=== PATIENT | female | born 1980 | race Caucasian/White ===

== ENCOUNTER 2021-11-23 16:32 | Outpatient (CLI) | payer BC, SELFPAY ==
[2021-11-23 19:15] LABS: SARS-CoV-2 RNA PCR Negative (Negative)
== END 2021-11-23 16:33 | disposition home or self-care (01) ==
LOC: CHSLAB 16:38
PROVIDERS: PCP Internal Medicine
DX: R05.9 Cough, unspecified (principal); Z20.822 Contact with and (suspected) exposure to COVID-19
CPT/HCPCS: C9803; U0003; U0005

== ENCOUNTER 2022-01-18 23:25 | Emergency (ER) | payer BC, SELFPAY ==
--- NOTE | ~2022-01-18 | XR_ITS ---
XR chest 1V portable DATE: 01/19/2022 01:25 INDICATION: Palpitations TECHNIQUE: Portable upright AP chest on 01/19/2022 at 0121 hours COMPARISON: None FINDINGS: Normal heart size. No hilar or mediastinal enlargement. No pulmonary infiltrate or consolid ation, pleural effusion or pulmonary vascular congestion or pneumothorax. IMPRESSION: No active cardiopulmonary disease Reviewed, dictated and finalized at location [facility]. ED [employer]
--- NOTE | ~2022-01-18 | CT_ITS ---
EXAMINATION: CT brain wo con DATE: 01/19/2022 01:43 INDICATION: Dizziness TECHNIQUE: Computed tomography (CT) of the head was performed without intravenous contrast. The mA wa s adjusted according to patient size. Iterative reconstruction technique was employed. Exam dose: 60 5.33 mGy-cm total exam DLP. COMPARISON: None FINDINGS: No intracranial mass lesion or hemorrhage or cerebrovascular accident, midline shift or mas s effect. Normal ventricular size. There is some volume loss in the frontal lobes. No subdural or epidural hematoma. No orbital mass lesion. No skull fracture or bone destruction. Included paranasal sinuses and the mastoid air cells are mery lly developed and aerated. IMPRESSION: No acute intracranial finding Reviewed, dictated and finalized at [facility]. Reviewed, dictated and finalized at location [facility]. PACKER
[2022-01-18 23:33] VITALS: BP 129/76; PULSE 107; RESP 18; TEMP 36.8; O2SAT 95
[2022-01-18 23:35] LABS: Glucose Point of Care 370 mg/dl (65-105)
--- NOTE | 2022-01-19 00:07 | ECG_ITS ---
Measurements Intervals [place] Rate: 90 P: 48 MS: 138 QRS: 2 QRSD: 95 T: 47 QT: 368 QTc: 452 Interpretive Statements SINUS RHYTHM INCOMPLETE RIGHT BUNDLE BRANCH BLOCK [90+ ms QRS DURATION, TERMINAL R IN V1/V2, 40+ ms S IN I/aVL/V4/V5/V6] BORDERLINE EKG NO PREVIOUS ECG AVAILABLE FOR COMPARISON Electronically Signed On 01-19-2022 8:59:01 DOUBLE NEEDLE STITCHER by Moustapha La M.D.
[2022-01-19] MEDS: THIAMINE HCL INJ 100 MG, FOLIC ACID 1 MG, MULTIVITAMINS-12 INJ 10 ML, MAGNESIUM SULFATE... 1000 MG IV CONT (00:36)
[2022-01-19 00:40] LABS: Basophils Absolute Auto 0.07 K/mm3 (0.00-0.10); Basophils Percent Auto 0.8 % (0.0-1.0); Eosinophils Absolute Auto 0.39 K/mm3 (0.02-0.50); Eosinophils Percent Auto 4.2 % (1.0-6.0); Hematocrit 42.7 % (35.0-49.0); Hemoglobin 15.3 g/dL (12.0-15.0); Immature Granulocyte Absolute 0.07 K/mm3 (0.00-0.00); Immature Granulocyte Percent A 0.8 % (0.0-0.0); Lymphocytes Absolute Auto 2.96 K/mm3 (1.10-4.50); Lymphocytes Percent Auto 31.8 % (18.0-42.0); Mean Corpuscular HGB Conc 35.8 g/dL (32.0-36.0); Mean Corpuscular Hemoglobin 32.9 pg (27.0-31.0); Mean Corpuscular Volume 91.8 fL (78.0-102.0); Mean Platelet Volume 10.5 fl (9.2-11.8); Monocytes Absolute Auto 0.38 K/mm3 (0.10-0.90); Monocytes Percent Auto 4.1 % (2.0-11.0); Neutrophils Absolute Auto 5.4 K/mm3 (1.7-7.2); Neutrophils Percent Auto 58.3 % (50.0-70.0); Platelet Count Result 195 K/mm3 (150-420); Red Blood Count 4.65 M/mm3 (4.20-5.40); Red Cell Distribution Width 11.9 % (11.6-14.4); White Blood Count 9.3 K/mm3 (4.8-10.8)
[2022-01-19 00:50] LABS: Amphetamine Screen Urine Negative (Negative); Barbiturate Screen Urine Negative (Negative); Benzodiazepines Screen Urine Negative (Negative); Cannabinoid Screen Urine Negative (Negative); Cocaine Screen Urine Positive (Negative); Methadone Screen Urine Negative (Negative); Opiate Screen Urine Negative (Negative); Phencyclidine Screen Urine Negative (Negative)
[2022-01-19 00:56] LABS: Alanine Aminotransferase 159 U/L (14-59); Alkaline Phosphatase 196 U/L (46-116); Anion Gap 15 mmol/L (8-16); Aspartate Amino Transferase 74 U/L (15-37); Bilirubin,Total 0.4 mg/dL (0.00-1.00); Blood Urea Nitrogen 6 mg/dL (7-18); Calcium 9.6 mg/dL (8.5-10.1); Carbon Dioxide 24 mmol/L (21-32); Chloride 100 mmol/L (98-108); Estimated CRCL calculation 72 ml/min; Estimated Glomerular Filt Rate > 60; Ethanol 199 mg/dL (0-6); Osmolality Calculated 303 mOsm/kg (285-295); Potassium 3.8 mmol/L (3.5-5.1); Sodium 139 mmol/L (136-145); Total Protein 7.6 g/dL (6.4-8.2); Troponin I 10.7 ng/L (0.00-60.4)
[2022-01-19 00:58] LABS: Glucose 419 mg/dL (70-99)
[2022-01-19] MEDS: INSULIN HUMAN REGULAR (*BKC) 100 UNITS/ML 12 UNITS IV PUSH (02:08)
[2022-01-19 02:22] LABS: Glucose Point of Care 292 mg/dl (65-105)
[2022-01-19 03:33] LABS: Reflex Lactic Acid Yes or No Add Lactic
[2022-01-19] MEDS: SODIUM CHLORIDE 0.9% IV 1,000 ML 999 ML IV CONT (03:46)
[2022-01-19 04:06] LABS: Lactic Acid 2.7 mmol/L (0.4-2.0)
--- NOTE | 2022-01-19 04:12 | ED.ANXIETY ---
HPI - Anxiety General Chief Complaint: Anxiety Stated Complaint: anxiety Time Seen by Provider: 01/18/22 23:27 Source: patient and RN notes reviewed Limitations: no limitations History of Present Illness MD complaint: anxiety and heart racing Onset (ago): hour(s) (6) Symptoms: palpitations and muscle cramps Severity: mild Quality: constant History of similar episodes: Yes Provoking factors: none known Relieving factors: nothing Exacerbating factors: nothing Associated symptoms: palpitations Related Data Home Medications Medication Instructions Recorded Confirmed alprazolam 0.5 mg PO DAILY 01/18/22 01/18/22 dulaglutide [Trulicity] 0.75 mg SUBCUT DAILY 01/18/22 01/18/22 fluticasone propionate 50 mcg INTRANASAL DAILY 01/18/22 01/18/22 hydrochlorothiazide 12.5 mg PO DAILY 01/18/22 01/18/22 medroxyprogesterone 150 mg IM USEASDIRECTD 01/18/22 01/18/22 metformin 500 mg PO DAILY 01/18/22 01/18/22 metoprolol succinate 25 mg PO DAILY 01/18/22 01/18/22 rosuvastatin 40 mg PO DAILY 01/18/22 01/18/22 sertraline 100 mg PO DAILY 01/18/22 01/18/22 Allergies Allergy/AdvReac Type Severity Reaction Status Date / Time No Known Allergies Allergy Mild Verified 01/18/22 23:37 Review of Systems Review of Systems: All systems reviewed & are unremarkable except as noted in HPI and below PMFSH Past Medical History Medical History (Updated 02/26/22 @ 10:16 by Belia Ervin MD) Alcohol abuse Alcohol intoxication Substance abuse Exam Const: General: no acute distress Nutritional Appearance: well nourished Orientation/consciousness: patient oriented x3 Limitations: no limitations HENMT: Ears: external ears normal, TM's normal bilaterally and Abnormal EAC present General nose exam: Normal external nose present and Normal nares present Face and sinus: normal facial exam Mouth: Yes lip normal and Yes moist mucous membranes Throat: posterior oropharynx normal Eyes: Conjunctivae: conjunctivae normal Pupils: Equal, round and reactive pupils present EOM: EOMs intact bilaterally Neck: Neck: normal visual inspection and no lymphadenopathy Chest: Chest palpation & inspection: normal inspection of the chest Resp: Effort & Inspection: normal respiratory effort Auscultation: clear to auscultation bilaterally Cardio: Rate: regular rate Rhythm: regular rhythm GI: GI Palp: Yes Soft to palpation and No Tenderness to palpation present (GI) : General: Yes bladder normal to palpation and Yes no CVA tenderness Back/Spine/Pelvis: Back: no CVA tenderness Skin: General skin exam: normal color Rashes: no rashes Neuro: General: patient oriented x3, moves all extremities, no meningeal signs, no focal motor deficits and CN's II-XI intact bilaterally Extrem: General: normal to inspection and no pedal edema Psych: Appearance: grossly normal Mental Status: mental status grossly normal Affect: normal affect Attitude: cooperative Thought content: Yes Normal thought content present Course Course Emergency Course: Pt was stable in the ED. Reevaluation(s) Date: 01/19/22 Time: 00:25 Vital Signs Vital signs: Vital Signs Temperature 36.8 C 01/18/22 23:33 Pulse Rate 107 H 01/18/22 23:33 Respiratory Rate 18 01/18/22 23:33 Blood Pressure 129/76 01/18/22 23:33 Pulse Oximetry 95 01/18/22 23:33 Temperature 36.6 C 01/19/22 06:13 Pulse Rate 80 01/19/22 06:13 Respiratory Rate 16 01/19/22 06:13 Blood Pressure 128/82 01/19/22 06:13 Pulse Oximetry 96 01/19/22 06:13 MDM - Anxiety Differential Diagnosis Differential diagnosis: Likely panic disorder and acute anxiety Medical Records Attestation: I reviewed the patient's medical records. Lab Data Result diagrams: 01/19/22 00:33 01/19/22 00:33 Labs: Lab Results 01/18/22 01/19/22 01/19/22 Range/Units 23:32 00:32 00:33 WBC 9.3 (4.8-10.8) K/mm3 RBC 4.65 (4.20-5.40) M/mm3 Hgb 15.3 H (12.0-15.0) g/dL
[2022-01-19 06:13] VITALS: BP 128/82; PULSE 80; RESP 16; TEMP 36.6; O2SAT 96
== END 2022-01-19 06:14 | disposition home or self-care (01) ==
PROVIDERS: Emergency Provider Emergency Medicine; PCP Internal Medicine
DX: F19.10 Other psychoactive substance abuse, uncomplicated (principal); F10.920 Alcohol use, unspecified with intoxication, uncomplicated; Z79.899 Other long term (current) drug therapy
CPT/HCPCS: 36415; 70450; 71045; 80053; 80307; 82948; 83605; 84484; 85025; 93005; 96361; 96365; 96366; 96375; 99284; J1815; J3411; J3475; J7030

== ENCOUNTER 2022-07-14 21:06 | Emergency (ER) | payer SELFPAY ==
--- NOTE | ~2022-07-14 | XR_ITS ---
EXAMINATION: XR ribs RT 2V DATE: 07/14/2022 21:42 INDICATION: Lateral right rib pain post injury TECHNIQUE: 3 views of the right ribs were obtained. COMPARISON: Chest radiograph date FINDINGS: No rib fractures identified. Right lung and visualized portions of the left lung are clear. No pulmon wilman edema, right-sided pleural effusion or pneumothorax. Visualized portion of the cardiomediastinal silhouette are normal. Mild thoracic dextrocurvature. IMPRESSION: 1. No rib fracture or evident acute cardiopulmonary disease. Reviewed, dictated and finalized at location A.
[2022-07-14] MEDS: KETOROLAC (*BKC) 60 MG/2 ML VIAL IM (21:44)
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
[2022-07-14 21:52] VITALS: BP 140/82; PULSE 80; RESP 18; TEMP 36.7; O2SAT 98
== END 2022-07-14 21:59 | disposition home or self-care (01) ==
PROVIDERS: Emergency Provider Emergency Medicine; PCP Internal Medicine
DX: T14.8XXA Other injury of unspecified body region, initial encounter (principal); V86.99XA Unspecified occupant of other special all-terrain or other off-road motor vehicle injured in nontraffic accident, initial encounter
CPT/HCPCS: 71100; 96372; 99283; J1885

== ENCOUNTER 2024-05-31 14:45 | Emergency (ER) | payer OTHER, SELFPAY ==
[2024-05-31] VITALS (12 sets, daily range): BP systolic 165–236; BP diastolic 107–136; PULSE 76–95; RESP 18–20; TEMP 36.6; O2SAT 95–98
--- NOTE | ~2024-05-31 | XR_ITS ---
EXAMINATION: XR foot LT min 3V DATE: 05/31/2024 15:19 INDICATION: Left foot injury. TECHNIQUE: 4 views of left foot were obtained. COMPARISON: None. FINDINGS: There is moderate hallux valgus. There is a comminuted fracture of first distal phalanx wit h involvement of the proximal articular surface. The main distal fracture fragment demonstrates 2 mm distraction. There is widening of second distal interphalangeal joint. There is a comminuted fracture of tuft of third distal phalanx. There is mild osteoarthritis of first metatarsophalangeal joint. Th ere is an enthesophyte at plantar aspect of calcaneal tuberosity. IMPRESSION: 1. Comminuted fractured of first distal phalanx. 2. Widening of second distal interphalangeal joint, likely posttraumatic. 3. Comminuted fracture of tuft of third distal phalanx. Reviewed, dictated and finalized at location E.
--- NOTE | 2024-05-31 14:52 | ED.GENADULT ---
HPI - General Adult General Chief complaint: Extremity Injury, Lower Stated complaint: left foot injury Time Seen by Provider: 05/31/24 14:51 History of Present Illness HPI narrative: Patient is a 44 year old female with history of depression, HLD, DM, HTN here with bilateral foot injury which occurred 2 days ago. Patient notes that she is currently moving and about 2 days ago dropped a piece of furniture on her left foot. She has been taking ibuprofen for pain, last dose around 11:30 AM today. She notes that it helps with the pain initially and seems to wear off quickly. Pain is worse with bearing weight. She notes some oozing blood from the toe nail as well as some blistering which she noticed for the first time today. She denies fever or chills. Her last tetanus shot was about 7 years ago after she stepped on a nail. She did follow with a target aircraft technician at that time but she is unsure of who they were. She has not seen her primary doctor for several months due to being in the process of moving, as a result, she has been out of many of her medications for several months including her blood pressure medications. Related Data Home Medications Medication Instructions Recorded Confirmed metformin 500 mg tablet,extended 500 mg PO DAILY 01/18/22 05/31/24 release 24 hr sertraline 100 mg tablet 100 mg PO DAILY 01/18/22 05/31/24 Allergies Allergy/AdvReac Type Severity Reaction Status Date / Time No Known Allergies Allergy Mild Verified 01/18/22 23:37 Review of Systems Review of Systems: All systems reviewed & are unremarkable except as noted in HPI and below PMFSH Past Medical History Medical History Alcohol abuse Alcohol intoxication Substance abuse Exam Narrative: GENERAL: Well-appearing, well-nourished, and in no acute distress. HEAD: Normocephalic, atraumatic. EYES: PERRLA and EOMI. ENT: Nares clear. Mucous membranes moist. NECK: Supple. CHEST: Clear to auscultation. No respiratory distress. HEART: Regular rate and rhythm. Normal peripheral pulses. ABDOMEN: Soft, nontender, nondistended. EXTREMITIES: RT foot: mild tenderness to the great toe with bruising present, no deformities, no drainage, no open wounds. LT foot: tenderness, swelling, erythema present to the great toe and 2nd toe with tenderness to mid foot. Sensation intact with normal capillary refill. She has a 1 cm blister present over the IP joint. Trace bright red blood oozing from base of lateral aspect of great toe nail. No additional lacerations appreciated. SKIN: Warm, dry, no rash. Blistering and redness of the left foot as described above. NEURO: No focal deficits. Alert and oriented x3. PSYCH: Normal mood and affect. Course Course Emergency Course: Chart review performed patient here after foot injury. Patient's last visits in 2021 for muscle strain and ETOH intoxication. Triage vitals show HTN, otherwise normal. Seen and evaluated, non toxic appearing. She is non compliant with her blood pressure medications, I suspect this and her pain are contributing to her high blood pressure here in the department. Will do POC glucose, pain medication, metoprolol dose, basic lab work, xrays, tetanus update. Patient agreeable to workup and plan. Patient refuses xray of her right foot, will cancel this based on patient request. Lab work and imaging reviewed. CBC shows no leukocytosis, electrolytes grossly normal aside from elevated blood glucose. CRP normal. XR shows comminuted fracture of first distal phalanx as well as comminuted fracture of tuft of third distal phalanx. Will vibha tape 2nd and 3rd toe and place in ortho post op shoe. Will start on keflex as well as norco for pain. Advise close follow up with PCP and her target aircraft technician. The results of pertinent diagnostic studies and exam findings were discussed. The patient?s provisional diagnosis and plan of care were discussed with the patient and presen
[2024-05-31 15:13] LABS: Glucose Point of Care 124 mg/dl (65-105)
[2024-05-31 15:23] LABS: Basophils Absolute Auto 0.07 K/mm3 (0.00-0.10); Basophils Percent Auto 0.7 % (0.0-1.0); Eosinophils Absolute Auto 0.18 K/mm3 (0.02-0.50); Eosinophils Percent Auto 1.8 % (1.0-6.0); Hematocrit 46.7 % (35.0-49.0); Hemoglobin 16.7 g/dL (12.0-15.0); Immature Granulocyte Absolute 0.04 K/mm3 (0.00-0.00); Immature Granulocyte Percent A 0.4 % (0.0-0.0); Lymphocytes Absolute Auto 1.79 K/mm3 (1.10-4.50); Lymphocytes Percent Auto 18.2 % (18.0-42.0); Mean Corpuscular HGB Conc 35.8 g/dL (32-36); Mean Corpuscular Hemoglobin 34.2 pg (27.0-31.0); Mean Corpuscular Volume 95.5 fL (78.0-102.0); Mean Platelet Volume 9.4 fl (9.2-11.8); Monocytes Absolute Auto 0.59 K/mm3 (0.10-0.90); Neutrophils Absolute Auto 7.18 K/mm3 (1.70-7.20); Neutrophils Percent Auto 72.9 % (50.0-70.0); Platelet Count Result 247 K/mm3 (150-420); Red Blood Count 4.89 M/mm3 (4.20-5.40); Red Cell Distribution Width 11.9 % (11.6-14.4); White Blood Count 9.9 K/mm3 (4.8-10.8)
[2024-05-31] MEDS: TETANUS,DIPHTHERIA,AC PERTUSSIS ADULT 0.5 ML (ADACEL) IM (15:28)
[2024-05-31] MEDS: METOPROLOL TARTRATE 50 MG TAB 25 MG PO (15:29)
[2024-05-31] MEDS: HYDROcodone/acetaminophen (*CRX) 5-325 MG TABLET 1 TAB PO (15:30)
[2024-05-31 15:39] LABS: Alanine Aminotransferase 64 U/L (14-59); Albumin Level 3.9 g/dL (3.4-5.0); Alkaline Phosphatase 100 U/L (46-116); Anion Gap 11 mmol/L (4-12); Aspartate Amino Transferase 40 U/L (15-37); Bilirubin,Total 1.2 mg/dL (0.00-1.00); Blood Urea Nitrogen 11 mg/dL (7-18); CRP < 0.5 mg/dL (0.0-0.9); Calcium 9.3 mg/dL (8.5-10.1); Carbon Dioxide 26 mmol/L (21-32); Chloride 98 mmol/L (98-108); Estimated CRCL calculation 96 ml/min; Estimated Glomerular Filt Rate > 60; Glucose 111 mg/dL (70-99); Osmolality Calculated 280 mOsm/kg (285-295); Sodium 135 mmol/L (136-145); Total Protein 7.8 g/dL (6.4-8.2)
== END 2024-05-31 16:44 | disposition home or self-care (01) ==
PROVIDERS: Emergency Provider Student in an Organized Health Care Education/Training Program; PCP Internal Medicine
DX: S92.422A Displaced fracture of distal phalanx of left great toe, initial encounter for closed fracture (principal); E78.5 Hyperlipidemia, unspecified; E11.9 Type 2 diabetes mellitus without complications; I10 Essential (primary) hypertension; Z79.84 Long term (current) use of oral hypoglycemic drugs; W22.8XXA Striking against or struck by other objects, initial encounter; Z23 Encounter for immunization
CPT/HCPCS: 36415; 73630; 80053; 82948; 85025; 86140; 90471; 90715; 99283; A9270